=== PATIENT | female | born 2000 | race Two or more races ===

== ENCOUNTER 2022-12-07 11:37 | Outpatient (CLI) | payer OTHER | END 2022-12-07 11:47 | disposition home or self-care (01) | LOC: PPH VACUNA 11:37 | PROVIDERS: ATTEND Emergency Medicine Pediatric Emergency Medicine | DX: Z23 Encounter for immunization (principal) ==

== ENCOUNTER 2024-01-23 10:30 | Outpatient (CLI) | payer OTHER | END 2024-01-23 11:00 | disposition home or self-care (01) | LOC: PPH VACUNA 10:30 | PROVIDERS: ATTEND Emergency Medicine Pediatric Emergency Medicine | DX: Z23 Encounter for immunization (principal) ==

== ENCOUNTER 2024-11-07 07:06 | Emergency (ER) | payer OTHER ==
[~2024-11-07] VITALS: Ht 165.1 cm; Wt 59.0 kg
[2024-11-07] MEDS ORDERED: IPRATROPIUM/ALBUTEROL SULFATE 3 ML AMPUL.NEB IH ONE ×2 (09:30→10:13)
[2024-11-07] MEDS ORDERED: GUAIFENESIN 200 MG/10 ML BLIST.PACK PO ONE ×2 (09:30→09:36)
[2024-11-07] MEDS ORDERED: DEXAMETHASONE SODIUM PHOSPHATE 4 MG/ML VIAL IM ONE (09:30)
[2024-11-07] MEDS ORDERED: DEXAMETHASONE SODIUM PHOSPHATE 4 MG/ML VIAL ONE (09:36)
[2024-11-07 09:41] LABS: BASO % 0.4 % (0.1-1.2); EOS # 0.16 (0.04-0.54); EOS % 2.8 % (0.7-7.0); LYMPH # 1.84 (1.18-3.74); LYMPH % 32.3 % (19.3-53.1); MEAN PLATELET VOLUME 12.40 fl (9.4-12.4); MONO # 0.46 (0.24-0.82); MONO % 8.1 % (4.7-12.5); NEUT # 3.22 (1.56-6.13); NEUT % 56.4 % (34.0-71.1); RED CELL DISTRIBUTION WIDTH 13.1 % (11.6-14.4)
[2024-11-07 10:37] LABS: COVID-19 AG NEGATIVE (NEGATIVE)
== END 2024-11-07 11:50 | disposition home or self-care (01) ==
LOC: ER 07:06
PROVIDERS: General Practice
DX: R05.9 Cough, unspecified (principal); Z20.822 Contact with and (suspected) exposure to COVID-19; Z91.040 Latex allergy status; Z87.09 Personal history of other diseases of the respiratory system

== ENCOUNTER 2025-01-22 14:14 | Outpatient (CLI) | payer OTHER | END 2025-01-22 14:15 | disposition home or self-care (01) | LOC: LAB 14:14 | PROVIDERS: ATTEND Obstetrics & Gynecology | DX: Z34.00 Encounter for supervision of normal first pregnancy, unspecified trimester (principal) ==

== ENCOUNTER 2025-01-29 14:00 | Outpatient (CLI) | payer OTHER | END 2025-01-29 14:10 | disposition home or self-care (01) | LOC: PPH VACUNA 14:00 | PROVIDERS: ATTEND Emergency Medicine Pediatric Emergency Medicine | DX: Z23 Encounter for immunization (principal) ==

== ENCOUNTER 2025-02-06 08:00 | Outpatient (CLI) | payer OTHER ==
[2025-02-06 10:49] LABS: URINE APPEARANCE Clear; URINE BILIRRUBIN Negative (NEGATIVE); URINE BLOOD Negative; URINE COLOR Yellow; URINE GLUCOSE Negative (NEGATIVE); URINE KETONE 15 (NEGATIVE); URINE LEUKOCYTE Negative; URINE NITRATE Negative; URINE PROTEIN Negative (NEGATIVE); URINE UROBILINOGEN 0.2 E.U./dl
[2025-02-06 10:50] LABS: URINE BACTERIA 350.3 uL (0.0-1933); URINE EPITHELIAL CELLS 11.5 uL (0.0-38.8); URINE RBC 7.6 uL (0.0-20.8); URINE WBC 6.4 uL (0.0-23.2)
[2025-02-06 10:58] LABS: URINE CAST 0.00 uL (0.0-1.40)
[2025-02-06 18:30] LABS: RH POSITIVE
== END 2025-02-06 08:06 | disposition home or self-care (01) ==
LOC: LAB 08:00
PROVIDERS: ATTEND Specialist
DX: N39.0 Urinary tract infection, site not specified (principal); B18.8 Other chronic viral hepatitis; A53.9 Syphilis, unspecified; Z34.91 Encounter for supervision of normal pregnancy, unspecified, first trimester; A74.9 Chlamydial infection, unspecified

== ENCOUNTER → 2025-03-08 | Emergency (ER) | payer OTHER ==
[~2025-03-08] VITALS: Ht 165.1 cm; Wt 58.5 kg
[~2025-03-08] MED LIST: METOCLOPRAMIDE HCL 5 MG/ML VIAL IM ONE; METOCLOPRAMIDE HCL 5 MG/ML VIAL ONE; ONDANSETRON HCL 2 MG/ML VIAL IV ONE; ONDANSETRON HCL 2 MG/ML VIAL ONE; PANTOPRAZOLE SODIUM 40 MG/VIAL VIAL IV PUSH ONE; PRENATAL + DHA1 EAC1 PO; REGLAN5 MG/5 ML; RINGERS SOLUTION,LACTATED 1,000 ML IV ONE; [UNRECOGNIZED DRUG - OTHER] PO
[2025-03-08 17:07] LABS: BASO % 0.7 % (0.1-1.2); EOS # 0.11 (0.04-0.54); EOS % 1.8 % (0.7-7.0); LYMPH # 0.79 (1.18-3.74); LYMPH % 13.1 % (19.3-53.1); MEAN PLATELET VOLUME 11.70 fl (9.4-12.4); MONO # 0.64 (0.24-0.82); MONO % 10.6 % (4.7-12.5); NEUT # 4.43 (1.56-6.13); NEUT % 73.8 % (34.0-71.1); RED CELL DISTRIBUTION WIDTH 11.9 % (11.6-14.4)
[2025-03-08 17:35] LABS: URINE APPEARANCE Clear; URINE BILIRRUBIN Negative (NEGATIVE); URINE BLOOD Negative; URINE COLOR Dark Yellow; URINE GLUCOSE Negative (NEGATIVE); URINE LEUKOCYTE Small; URINE NITRATE Negative; URINE PROTEIN Trace (NEGATIVE); URINE UROBILINOGEN 0.2 E.U./dl
[2025-03-08 17:39] LABS: URINE EPITHELIAL CELLS 55.1 uL (0.0-38.8); URINE RBC 12.1 uL (0.0-20.8); URINE WBC 97.6 uL (0.0-23.2)
[2025-03-08 17:42] LABS: ALT/SGPT 23.0 U/L (12-78); AST/SGOT 19.0 U/L (15-37); BILIRUBIN TOTAL 0.47 mg/dL (0.3-1.2); BUN CREA RATIO 10.0 (7.0-25.0); CREATININE SERUM 0.71 mg/dL (0.55-1.02); GFR 101.13; GLOBULINA 3.9 G/DL (2.4-3.5); GLUCOSE FASTING 78.0 mg/dL (65-100); OSMOLALITY SERUM 271.0 MOSM/KG (275-295)
[2025-03-08 17:46] LABS: URINE CAST 0.99 uL (0.0-1.40); URINE KETONE >=160 (NEGATIVE)
== END | disposition home or self-care (01) ==
LOC: ER 14:54
PROVIDERS: General Practice
DX: O21.0 Mild hyperemesis gravidarum (principal); Z3A.11 11 weeks gestation of pregnancy; N39.0 Urinary tract infection, site not specified; Z91.040 Latex allergy status